=== PATIENT | male | born 2000 | race Caucasian/White ===

== ENCOUNTER 2020-03-20 12:59 | Emergency (ER) | payer OTHER ==
[2020-03-20 14:09] LABS: Absolute Lymphocytes (CBC) 0.9 K/uL (0.7-4.9); Basophils % 0.2 % (0-1.3); Hematocrit 41.4 % (39.6-49.0); Lymphocytes % 6.3 % (15.3-44.8); MPV 9.3 fL (7.6-11.3); RBC Red Blood Cell Count 4.64 M/uL (4.33-5.43)
[2020-03-20 14:19] LABS: Protime INR 1.09
[2020-03-20 14:37] LABS: ALT/SGPT 18 U/L (12-78); AST/SGOT 15 U/L (15-37); Albumin 3.9 g/dL (3.4-5.0); Alkaline Phosphatase 58 U/L (45-117); BUN Blood Urea Nitrogen 17 mg/dL (7-18); Bicarbonate 26 mmol/L (21-32); Bilirubin Direct 0.2 mg/dL (0-0.2); Bilirubin Total 0.8 mg/dL (0.2-1.0); Glucose Level 109 mg/dL (74-106); Magnesium 1.9 mg/dL (1.8-2.4); NT PRO-BNP 55 pg/mL (<125); Potassium 3.9 mmol/L (3.5-5.1); Protein, Total 7.8 g/dL (6.4-8.2); Sodium Level 138 mmol/L (136-145); Troponin (Emerg Dept Use Only) < 0.02 ng/mL (0.0-0.045)
--- NOTE | 2020-03-20 14:41 | RAD REPORT ---
EXAM DESCRIPTION: RAD - Chest Single View - 03/20/2020 2:35 pm CLINICAL HISTORY: Syncope;SOB Chest pain. COMPARISON: No comparisons FINDINGS: Portable technique limits examination quality. The lungs are grossly clear. The heart is normal in size. No displaced fractures. IMPRESSION: No acute intrathoracic process suspected.
--- NOTE | 2020-03-20 15:39 | EDPHYS ---
Physician Documentation [facility] Name: Nilay Miramontes Age: 19 yrs Sex: Male : 2000 Arrival Date: 03/20/2020 Time: 12:59 Bed 7 Private MD: ED Physician Kin Aguirre HPI: 03/20 19:26 This 19 yrs old Male presents to ER via EMS with complaints of Syncope, Chest kdr Pain. 19:26 The patient has experienced syncope, became unresponsive, collapsed. Onset: The kdr symptoms/episode began/occurred suddenly, just prior to arrival. Duration: This was a single episode, that lasted an unknown period of time. Context: the episode(s) was witnessed, by family, occurred on a street or driveway, occurred while the patient was The patient seemed to be having difficulty breathing and then became unresponsive for a short time. Mom reports that his lips turned blue prior to coming around . On arrival to the ED the patient was alert and appropriate and only c/o sore throat. Associated injury: The patient did not suffer any apparent associated injury. Associated signs and symptoms: Pertinent positives: shortness of breath. Current symptoms: Sore throat. The patient has not experienced similar symptoms in the past. The patient has not recently seen a physician. Historical: - Allergies: 13:00 No Known Allergies; rb1 - Home Meds: 13:00 None [Active]; rb1 - PMHx: 13:00 None; rb1 - PSHx: 13:00 None; rb1 - Immunization history:: Adult Immunizations up to date. - Social history:: Smoking status: Reported history of juuling and/or vaping. ROS: 19:26 Constitutional: Negative for fever, chills, and weight loss, Eyes: Negative for injury, kdr pain, redness, and discharge, Neck: Negative for injury, pain, and swelling, Cardiovascular: Negative for chest pain, palpitations, and edema, Respiratory: Negative for shortness of breath, cough, wheezing, and pleuritic chest pain, Abdomen/GI: Negative for abdominal pain, nausea, vomiting, diarrhea, and constipation, Back: Negative for injury and pain, : Negative for injury, bleeding, discharge, and swelling, MS/Extremity: Negative for injury and deformity, Skin: Negative for injury, rash, and discoloration, Psych: Negative for depression, anxiety, suicide ideation, homicidal ideation, and hallucinations, Allergy/Immunology: Negative for hives, rash, and allergies, Endocrine: Negative for neck swelling, polydipsia, polyuria, polyphagia, and marked weight changes, Hematologic/Lymphatic: Negative for swollen nodes, abnormal bleeding, and unusual bruising. 19:26 Neuro: Positive for loss of consciousness, syncope, Negative for gait disturbance, headache, seizure activity, visual changes. Exam: 13:46 ECG was reviewed by the Attending Physician. kdr 19:26 Constitutional: This is a well developed, well nourished patient who is awake, alert, kdr and in no acute distress. Head/Face: Normocephalic, atraumatic. Eyes: Pupils equal round and reactive to light, extra-ocular motions intact. Lids and lashes normal. Conjunctiva and sclera are non-icteric and not injected. Cornea within normal limits. Periorbital areas with no swelling, redness, or edema. Neck: Trachea midline, no thyromegaly or masses palpated, and no cervical lymphadenopathy. Supple, full range of motion without nuchal rigidity, or vertebral point tenderness. No Meningismus. Chest/axilla: Normal chest wall appearance and motion. Nontender with no deformity. No lesions are appreciated. Cardiovascular: Regular rate and rhythm with a normal S1 and S2. No gallops, murmurs, or rubs. Normal PMI, no JVD. No pulse deficits. Respiratory: Lungs have equal breath sounds bilaterally, clear to auscultation and percussion. No rales, rhonchi or wheezes noted. No increased work of breathing, no retractions or nasal flaring. Abdomen/GI: Soft, non-tender, with normal bowel sounds. No distension or tympany. No guarding or rebound. No evidence of tenderness throughout. Back: No spinal tenderness. No costovertebral tenderness. Full range of motion. Skin: Warm, dry with normal turgor. Normal color with no rashes, no lesions, and no evidence of cellulitis. MS/ Extremity: Pulses equal, no cyanosis. Neurovascular intact. Full, normal range of motion. Neuro: Awake and alert, GCS 15, oriented to person, place, time, and situation. Cranial nerves II-XII grossly intact. Motor strength 5/5 in all extremities. Sensory grossly intact. Cerebellar exam normal. Normal gait. Psych: Awake, alert, with orientation to person, place and time. Behavior, mood, and affect are within normal limits. 19:26 ENT: Posterior pharynx: Airway: normal, patent, Tonsils: enlarged on the right, no exudate. Vital Signs: 13:00 BP 113 / 67; Pulse 90; Resp 21; Temp 98.9; Pulse Ox 99% ; Weight 77.11 kg; Height 5 ft. rb1 10 in. (177.80 cm); Pain 2/10; 14:00 BP 113 / 67; Pulse 90; Resp 21; Pulse Ox 99% ; bp 14:55 BP 118 / 61; Pulse 71; Resp 17; Pulse Ox 100% ; bp 15:45 BP 123 / 71; Pulse 91; Resp 18; Pulse Ox 100% ; rb1 13:00 Body Mass Index 24.39 (77.11 kg, 177.80 cm) rb1 MDM: 15:38 Patient medically screened. [facility] 19:26 Data reviewed: vital signs, nurses notes, lab test result(s), radiologic studies. kdr Counseling: I had a detailed discussion with the patient and/or guardian regarding: the historical points, exam findings, and any diagnostic results supporting the discharge/admit diagnosis, lab results, radiology results, the need for outpatient follow up. 03/20 13:10 Order name: Basic Metabolic Panel; Complete Time: 15: [facility] 03/20 13:10 Order name: CBC with Diff; Complete Time: 15: [facility] 03/20 13:10 Order name: LFT's; Complete Time: 15: [facility] 03/20 13:10 Order name: Magnesium; Complete Time: 15: [facility] 03/20 13:10 Order name: NT PRO-BNP; Complete Time: 15: [facility] 03/20 13:10 Order name: PT-INR; Complete Time: 15: [facility] 03/20 13:10 Order name: Troponin (emerg Dept Use Only); Complete Time: 15: [facility] 03/20 13:10 Order name: XRAY Chest (1 view); Complete Time: 15: [facility] 03/20 13:10 Order name: EKG; Complete Time: 13:11 [facility] 03/20 13:10 Order name: Cardiac monitoring; Complete Time: 13:15 [facility] 03/20 13:10 Order name: EKG - Nurse/Tech; Complete Time: 14:29 [facility] 03/20 13:25 Order name: COVID-19 [facility] 03/20 13:25 Order name: Strep; Complete Time: 15:05 [facility] 03/20 14:52 Order name: Throat Culture [facility] 03/20 13:10 Order name: IV Saline Lock; Complete Time: 14:29 [facility] 03/20 13:10 Order name: Labs collected and sent; Complete Time: 14:29 [facility] 03/20 13:10 Order name: O2 Per Protocol; Complete Time: 13:15 [facility] 03/20 13:10 Order name: O2 Sat Monitoring; Complete Time: 13:15 [facility] EC:46 Rate is 87 beats/min. Rhythm is regular, Normal Sinus Rhythm. QRS [place] is Normal. Right kdr axis deviation noted. NC interval is normal. QRS interval is normal. QT interval is normal. No Q waves. Clinical impression: NSR w/ Non-specific ST/T Changes. Administered Medications: No medications were administered Disposition: 03/20/20 15:38 Discharged to Home. Impression: Syncope and collapse, Viral infection, unspecified, Acute pharyngitis. - Condition is Stable. - Discharge Instructions: Pharyngitis, [id number], Syncope, [id number]. - Medication Reconciliation Form, Thank You Letter form. - Follow up: Private Physician; When: 2 - 3 days; Reason: If symptoms return, Further diagnostic work-up, Recheck today's complaints, Continuance of care, Re-evaluation by your physician. Signatures: Dispatcher [employer] [facility] Kin Aguirre MD MD kdr Stephenie Hardin RN RN rb1 Corrections: (The following items were deleted from the chart) 15:54 15:38 03/20/2020 15:38 Discharged to Home. Impression: Syncope and collapse; Viral rb1 infection, unspecified; Acute pharyngitis. Condition is Stable. Forms are Medication Reconciliation Form, Thank You Letter, Antibiotic Education, Prescription Opioid Use. Follow up: Private Physician; When: 2 - 3 days; Reason: If symptoms return, Further diagnostic work-up, Recheck today's complaints, Continuance of care, Re-evaluation by your physician. kdr
--- NOTE | 2020-03-20 15:39 | ER ---
Nurse's Notes [facility] Name: Nilay Miramontes Age: 19 yrs Sex: Male : 2000 Arrival Date: 03/20/2020 Time: 12:59 Bed 7 Private MD: Diagnosis: Syncope and collapse;Viral infection, unspecified;Acute pharyngitis Presentation: 03/20 13:00 Chief complaint: EMS states: Pt. A \T\ O x 4, was at an urgent care for a sore throat and rb1 fever, he complained of chest pain, palpitations and was SOB right before he passed out. Mother reports that his lips turned blue. BP 127/80, P 88, T 97.9, BS 133, O2 99%. Skin is pink, warm, and dry. Coronavirus screen: Patient reports a measured and/or subjective temperature greater than 100.4F. Ebola Screen: Patient negative for fever greater than or equal to 101.5 degrees Fahrenheit, and additional compatible Ebola Virus Disease symptoms. Initial Sepsis Screen:. Risk Assessment: Do you want to hurt yourself or someone else? Patient reports no desire to harm self or others. 13:00 Method Of Arrival: EMS: [facility] rb1 13:00 Acuity: NAEEM 3 rb1 13:00 Initial Sepsis Screen: Does the patient have a suspected source of infection? Yes: rb1 Other: sore throat. 13:00 Coronavirus screen: Surgical mask placed on patient. Patient moved to private room, rb1 placed in contact and droplet isolation with eye protection until further assessment. Patient denies a cough. Patient reports shortness of breath or difficulty breathing. Patient denies travel on a cruise ship or to a country the [facility] currently lists as an affected area. Patient denies contact with known and/or suspected case of COVID-19. 15:52 Initial Sepsis Screen: Does the patient meet any 2 criteria?. rb1 15:53 Onset of symptoms was March 20, 2020. rb1 Triage Assessment: 13:00 General: Appears in no apparent distress. comfortable, Behavior is calm, cooperative, rb1 Reports fever for. Pain: Complains of pain in anterior aspect of left upper chest Pain currently is 2 out of 10 on a pain scale. EENT: Reports sore throat. Neuro: Level of Consciousness is awake, alert, obeys commands, Oriented to person, place, time, situation, Reports a syncopal episode. Cardiovascular: Capillary refill < 3 seconds Patient's skin is warm and dry. Respiratory: Reports shortness of breath Airway is patent Respiratory effort is even, unlabored, Respiratory pattern is regular, symmetrical. GI: No signs and/or symptoms were reported involving the gastrointestinal system. : No signs and/or symptoms were reported regarding the genitourinary system. Musculoskeletal: Range of motion: intact in all extremities. Historical: - Allergies: 13:00 No Known Allergies; rb1 - Home Meds: 13:00 None [Active]; rb1 - PMHx: 13:00 None; rb1 - PSHx: 13:00 None; rb1 - Immunization history:: Adult Immunizations up to date. - Social history:: Smoking status: Reported history of juuling and/or vaping. Screenin:00 Abuse screen: Denies threats or abuse. Nutritional screening: No deficits noted. rb1 Tuberculosis screening: No symptoms or risk factors identified. 13:00 Fall Risk None identified. rb1 Assessment: 13:00 General: SEE TRIAGE NOTE. bp 14:00 Reassessment: VS STABLE ON MONITOR, NO CHANGE IN NEURO STATUS. bp 14:56 Reassessment: ALL CURRENT ORDERS COMPLETE. DISPO PENDING. bp 14:56 Neuro: Level of Consciousness is awake, alert, obeys commands, Oriented to person, bp place, time, situation, Appropriate for age. Cardiovascular: Rhythm is sinus rhythm. 15:45 Reassessment: Patient appears in no apparent distress at this time. Patient and/or rb1 family updated on plan of care and expected duration. Pain level reassessed. Patient is alert, oriented x 3, equal unlabored respirations, skin warm/dry/pink. Vital Signs: 13:00 BP 113 / 67; Pulse 90; Resp 21; Temp 98.9; Pulse Ox 99% ; Weight 77.11 kg; Height 5 ft. rb1 10 in. (177.80 cm); Pain 2/10; 14:00 BP 113 / 67; Pulse 90; Resp 21; Pulse Ox 99% ; bp 14:55 BP 118 / 61; Pulse 71; Resp 17; Pulse Ox 100% ; bp 15:45 BP 123 / 71; Pulse 91; Resp 18; Pulse Ox 100% ; rb1 13:00 Body Mass Index 24.39 (77.11 kg, 177.80 cm) rb1 ED Course: 12:59 Patient arrived in ED. rb1 12:59 Kin Aguirre MD is Attending Physician. kdr 13:00 Arm band placed on right wrist. rb1 13:00 Patient has correct armband on for positive identification. Bed in low position. Call [facility] light in reach. Side rails up X 1. cane flume feeding machine operator on. Pulse ox on. NIBP on. 13:08 Triage completed. rb1 13:12 Stephenie Hardin, RN is Primary Nurse. rb1 13:45 Initial lab(s) drawn, by [facility], sent to lab. Strep swab sent to lab. Inserted saline lock: [facility] 20 gauge in right antecubital area, using aseptic technique. Blood collected. 14:30 COVID-19 Sent. dh3 14:36 XRAY Chest (1 view) In Process Unspecified. EDMS 14:55 Throat Culture Sent. bp 15:51 No provider procedures requiring assistance completed. IV discontinued, intact, rb1 bleeding controlled, No redness/swelling at site. Pressure dressing applied. Administered Medications: No medications were administered Outcome: 15:38 Discharge ordered by . kdr 15:52 Discharged to home ambulatory. rb1 15:52 Condition: stable 15:52 Discharge instructions given to patient, Instructed on discharge instructions, follow up and referral plans. Demonstrated understanding of instructions, follow-up care, Prescriptions given X none 15:54 Patient left the ED. rb1 Addendum: 03/25/2020 10:34 Addendum: Other Pt notified of negative COVID 19 swab results. Pt advised to remain in d m5 isolation until symptom free for 3 days and to return to the ED for worsening symptoms. Signatures: Dispatcher [employer] [facility] Saskia Powell, HANS RN [id number] Kin Aguirre MD MD [email or web address] Stephenie Hardin, RN RN rb1 Lisa Perez 3 Nas Garcia RN RN bp Corrections: (The following items were deleted from the chart) 03/20 15:06 14:56 Reassessment: ALL CURRENT ORDERS COMPLETE. DISPO PENDING bp bp 15:53 13:00 BP 113 / 67; Pulse 90bpm; Resp 21bpm; Pulse Ox 99%; 77.11 kg; Height 5 ft. 10 rb1 in.; BMI: 24.3; Pain 2/10; rb1
[2020-03-20 16:01] VITALS: TEMP 98.9
[2020-03-20 16:05] VITALS: O2SAT 100
[2020-03-20 16:06] VITALS: BP 123/71
== END 2020-03-20 15:54 | disposition home or self-care (01) ==
LOC: ER 12:59
DX: B34.9 Viral infection, unspecified (principal); J02.9 Acute pharyngitis, unspecified; Z20.828 Contact with and (suspected) exposure to other viral communicable diseases
CPT/HCPCS: 93005; 87070; 85025; 80048; 36415; 83735; 85610; 80076; 87081; 84484; 83880; 71045; 99284; U0001